=== PATIENT | male | born 1985 | race Caucasian/White ===

== ENCOUNTER 2021-12-21 19:54 | Emergency (ER) | payer OTHER, SELFPAY ==
[2021-12-21 20:40] VITALS: BP 125/73; PULSE 77; RESP 14; TEMP 36.3; O2SAT 99; BMI 68.8
[2021-12-21 22:50] VITALS: BP 123/73; PULSE 67; TEMP 36.2; O2SAT 98
--- NOTE | 2021-12-21 22:59 | ED_ITS ---
HPI - Wound/Laceration General Chief Complaint: Wound/Laceration Stated Complaint: ?Foot infection Time Seen by Provider: 12/21/21 22:52 Source: patient Mode of arrival: ambulatory Limitations: no limitations History of Present Illness HPI narrative: 36-year-old male here with reports of right foot pain for the last few weeks. Patient tells me that he got the foot wet for period of time and after that he noticed the pain. He also feels that the foot is warm and swollen. No fevers or chills. Related Data Previous Rx's Medication Instructions Recorded doxycycline monohydrate 100 mg 100 mg PO BID #20 tab 12/21/21 tablet Allergies Allergy/AdvReac Type Severity Reaction Status Date / Time Penicillins [PENICILLINS] Allergy Unknown UNKNOWN Unverified 04/16/20 19:03 Review of Systems Review of Systems: Yes all other systems are reviewed and are negative Constitutional: Constitutional: Reports no additional constitutional complaints, Denies body ache(s), Denies chills, Denies fever(s), Denies headache(s) and Denies weakness Eyes: Eyes: Reports no additional eye complaints and Denies change in vision ENT: Reports system reviewed and no additional complaints, except as documented, Denies dizziness, Denies headache(s), Denies nasal congestion, Denies nasal discharge and Denies neck pain Cardiovascular: Cardiovascular: Reports no additional cardiovascular complaints, Denies chest pain, Denies leg edema and Denies dyspnea Respiratory: Respiratory: Reports no additional respiratory complaints, Denies cough and Denies dyspnea Gastrointestinal: Gastrointestinal: Reports no additional gastrointestinal complaints, Denies abdominal pain, Denies diarrhea, Denies nausea and Denies vomiting Genitourinary: Genitourinary: Denies urinary incontinence Musculoskeletal: Musculoskeletal: Reports no additional musculoskeletal complaints, Denies back pain, Denies arthralgias, Denies joint swelling, Denies neck pain, Denies numbness and Denies tingling Integumentary/Breasts: Skin/Breast: Reports system reviewed and no additional complaints, except as docu, Reports swelling, Reports erythema and Denies rash Neurologic: Reports system reviewed and no additional complaints, except as documented, Denies Abnormal speech present, Denies dizziness, Denies headache(s), Denies numbness, Denies tingling and Denies weakness PMF Past Medical History Attestation statement: The following information was validated with the patient. Source: old records reviewed and nursing notes reviewed Social History Social History Advance Directives: No Advance Directives Information Provided: No Physical Exam Vital Signs: Vital Signs: Last Vital Signs Temp 97.2 F 12/21/21 22:50 Pulse 67 12/21/21 22:50 Resp 14 12/21/21 20:40 BP 123/73 12/21/21 22:50 Pulse Ox 98 12/21/21 22:50 BMI result Body Mass Index 68.8 Const: General: cooperative, healthy appearing, comfortable and no acute distress Orientation/consciousness: patient oriented x3 Limitations: no limitations HEENT: Head: Yes normal to inspection Ears: hearing grossly normal bilaterally General nose exam: Normal external nose present Face and sinus: Yes normal facial exam Mouth: Normal oral and palatal mucosa present Throat: Yes posterior oropharynx normal Eyes: General: appearance normal, both eyes and all related structures Pupils: Equal, round and reactive pupils present Neck: Neck: Yes normal visual inspection Chest: Chest palpation & inspection: normal inspection of the chest Resp: Effort & Inspection: normal respiratory effort Auscultation: clear to auscultation bilaterally Cardio: Rate: regular rate Rhythm: regular rhythm Peripheral pulses: Peripheral pulses 2+ throughout GI: Inspection: Yes normal to inspection Palpation (GI): Soft to palpation and nontender Auscultation: normal bowel sounds Back/Spine/Pelvis: Thoracic/Lumbar Spine: thoracic and lumbar spine normal to inspection Skin: General skin exam: no rashes or lesions noted Neuro: General: patient oriented x3, no focal motor deficits and normal sensation to monofilament Cranial nerves: Yes Equal, round and reactive pup ils present Cognition (Neuro): normal cognition Speech: No Abnormal speech present Gait exam (Neuro): Normal gait present Motor exam (neuro): 5/5 motor strength present throughout Extrem: Other: To the plantar aspect of the right foot there is an open abrasion with some maceration of the skin noted. Over the dorsal aspect there is slight warmth, redness and swelling. It is not circumferential. There are palpable DP and PT pulses. There is full range of motion. General: Yes normal to inspection Course Course Course Narrative: 36-year-old male here with what appears to be a right foot cellulitis. Likely secondary to his foot being wet for a period of time. The area is not circumferential. He has no fever or tachycardia or systemic signs or symptoms concerning for infection. Will start him on oral antibiotics. Recommend keeping his foot clean and dry. Reviewed worrisome signs and symptoms of when to return to the emergency department. Comfortable discharge home. MDM - Wound/Laceration Medical Records Attestation: I reviewed the patient's medical records. Lab Data Attestation: I reviewed the patient's lab results. Discharge Plan Discharge Clinical Impression: Cellulitis of foot Patient Disposition: Home, Self-Care Instructions: Cellulitis (ED), Cellulitis (DC) Additional Instructions: Keep your feet dry Return for fever 100.4, increasing redness/swelling or pain. Prescriptions: New doxycycline monohydrate 100 mg tablet 100 mg PO BID Qty: 20 0RF Referrals: Physician,Fabiana J [Primary Care Provider] - 1 week Interventions: ED Discharge Assessment Last Done: 12/22/21 00:19 Discharge Date/Time: 12/22/21 00:20
== END 2021-12-22 00:20 | disposition home or self-care (01) ==
LOC: HO.ED 23:07
PROVIDERS: Emergency Provider Internal Medicine
DX: L03.115 Cellulitis of right lower limb (principal); M79.671 Pain in right foot
CPT/HCPCS: 99283

== ENCOUNTER 2022-02-08 14:42 | Emergency (ER) | payer OTHER, SELFPAY ==
--- NOTE | ~2022-02-08 | XR_ITS ---
EXAMINATION: XR TIBIA AND FIBULA, RIGHT CLINICAL INFORMATION: Leg swelling and redness COMPARISON: None TECHNIQUE: AP and lateral views of the right tibia and fibula were obtained. FINDINGS: Plate and screw fixation hardware is present along the distal fibula. Additional screws are present at the medial malleolus. Osseous alignment is anatomic. No acute fracture is seen. Small posterior calcaneal spur is present. Joint spaces at the knee and ankle appear maintained. There is medial soft tissue swelling at the ankle. XR/XR tibia fibula RT 2V IMPRESSION: No acute osseous findings identified. Medial soft tissue swelling at the ankle.
--- NOTE | ~2022-02-08 | US_ITS ---
EXAMINATION: US VENOUS ULTRASOUND WITH DOPPLER LOWER EXTREMITY, BILATERAL CLINICAL INFORMATION: Redness and swelling COMPARISON: None TECHNIQUE: Ultrasound of the deep veins is performed from the hip to the calf with compression sonography and color and pulse Doppler assessment. Spectral analysis with color-flow imaging is performed. FINDINGS: RIGHT: There is normal venous compression and respiratory variation and augmented flow. The visualized common femoral vein, superficial femoral vein, profunda femoral vein, popliteal vein, and the trifurcation region shows no evidence of deep venous thrombosis. There is no significant popliteal fossa cyst. LEFT: There is normal venous compression and respiratory variation and augmented flow. The visualized common femoral vein, superficial femoral vein, profunda femoral vein, popliteal vein, and the trifurcation region shows no evidence of deep venous thrombosis. There is no significant popliteal fossa cyst. If the patient's symptoms persist, followup ultrasound in 5 days 7 days might be of value to exclude proximal propagation from a non-visualized calf vein. US/US venous duplex LE BI IMPRESSION: No DVT demonstrated in the bilateral lower extremities.
--- NOTE | ~2022-02-08 | XR_ITS ---
EXAMINATION: XR CHEST CLINICAL INFORMATION: Chest pain COMPARISON: 01/06/2020 TECHNIQUE: Frontal view of the chest was obtained. FINDINGS: No significant abnormality is noted involving the heart, lungs, mediastinum, bony thorax or soft tissues. XR/XR chest 1V IMPRESSION: Unremarkable examination.
--- NOTE | ~2022-02-08 | XR_ITS ---
EXAMINATION: XR TIBIA AND FIBULA, LEFT CLINICAL INFORMATION: Leg swelling and redness COMPARISON: None TECHNIQUE: AP and lateral views of the left tibia and fibula were obtained. FINDINGS: Osseous alignment is anatomic. No acute fracture is seen. Joint spaces at the knee and ankle appear maintained. Soft tissue swelling is noted at the ankle. XR/XR tibia fibula LT 2V IMPRESSION: No acute osseous findings. Soft tissue swelling at the ankle.
[2022-02-08 16:03] VITALS: BP 102/58; PULSE 86; RESP 18; TEMP 37.3; O2SAT 95; BMI 31.8
--- NOTE | 2022-02-08 16:07 | ECG_ITS ---
Test Reason : SWOLLEN LEGS Blood Pressure : / mmHG Vent. Rate : 076 BPM Atrial Rate : 076 BPM P-R Int : 198 ms QRS Dur : 076 ms QT Int : 402 ms P-R-T Axes : 016 039 038 degrees QTc Int : 452 ms Normal sinus rhythm Normal ECG No previous ECGs available Referred By: Generic ED Physician Electronically Signed By:DEVON BO MD
[2022-02-08 16:54] LABS: MANUAL DIFF FLAG NO
[2022-02-08 16:59] LABS: Basophils Percent Auto 0.4 % (0-2); Eosinophils Percent Auto 0.2 % (0-4); Hematocrit 32.8 % (42.0-52.0); Hemoglobin 10.8 g/dl (14.0-18.0); Imm Gran Abs Auto 0.02 X10*3/uL (0.00-0.03); Imm Gran Pct Auto 0.4 % (0.0-0.4); Lymphocytes Absolute Auto 0.7 X10*3/uL (1.2-4.9); Lymphocytes Percent Auto 12.3 % (20-40); Mean Corpuscular HGB Conc 32.9 g/dl (31.0-36.0); Mean Corpuscular Hemoglobin 28.3 pg (27.0-33.0); Mean Corpuscular Volume 85.9 fL (80.0-98.0); Mean Platelet Volume 10.1 fL (9.4-12.4); Monocytes Absolute Auto 0.5 X10*3/uL (0.1-1.2); Monocytes Percent Auto 8.5 % (2-11); Neutrophils Absolute Auto 4.3 x10*3/uL (2.0-8.3); Neutrophils Percent Auto 78.2 % (45-73); Platelet Count 190 X10*3/uL (160-400); Red Blood Count 3.82 X10*6/uL (4.60-5.80); Red Cell Distribution Width 13.5 % (11.0-16.0); White Blood Count 5.5 X10*3/uL (4.8-10.8)
[2022-02-08 17:07] LABS: D Dimer High Sensitivity 340 NG/ML
[2022-02-08 17:11] LABS: Alanine Aminotransferase 36 U/L (0-40); Albumin Level 4.4 g/dL (3.5-5.0); Alkaline Phosphatase 81 U/L (39-117); Anion Gap 13 (12-20); Aspartate Amino Transferase 38 U/L (5-37); Bilirubin Total 0.4 mg/dL (0.0-1.0); Blood Urea Nitrogen 12 mg/dL (9-16); COVID-19 Test Negative (Negative); Calcium 8.8 mg/dL (8.4-10.2); Carbon Dioxide 26 mmol/L (22-29); Chloride 98 mmol/L (96-108); Creatinine Clr Calc Pharmacy 148.6; Estimated Glomerular Filt Rate > 60; Glucose Random 126 mg/dL (60-115); IDNOW Serial# 08D9AD1C; Potassium 3.7 mmol/L (3.3-5.1); Sodium 133 mmol/L (135-145); Total Protein 7.1 g/dL (6.5-8.0)
[2022-02-08 17:16] LABS: B Type Natriuretic Peptide 20 pg/mL (<100); Troponin-I High Sensitivity < 3.5 ng/L (<3.5-35.0)
--- NOTE | 2022-02-09 02:18 | ED.GENADULT ---
HPI - General Adult General Chief complaint: Extremity Injury, Lower Stated complaint: Swelling Both Legs Time Seen by Provider: 02/09/22 00:08 Source: patient Mode of arrival: ambulatory Limitations: no limitations History of Present Illness HPI narrative: 36 yold male with pmh of IV drug use presents to the ED for bilateral lower extremity pain with red rash and warmth. patient denies any recent trauma to lower extremities, IV injection to lower extremities, or animlal bite. patietn states no chest pain, plueirsy, shortness of breath, fever, or chils. Related Data Previous Rx's Medication Instructions Recorded doxycycline monohydrate 100 mg 100 mg PO BID #20 tabs 12/21/21 tablet cephalexin 500 mg capsule 500 mg PO QID 7 days #28 caps 02/09/22 doxycycline hyclate 100 mg tablet 100 mg PO BID 7 days #14 tabs 02/09/22 prednisone 20 mg tablet 20 mg PO BID 5 days #10 tabs 02/09/22 Allergies Allergy/AdvReac Type Severity Reaction Status Date / Time No Known Allergies Allergy Verified 02/08/22 16:03 Review of Systems Review of Systems: BIlateral lower extremity swelling with redness Yes all other systems are reviewed and are negative [facility] Social History Social History Advance Directives: No Advance Directives Information Provided: No Physical Exam ED Vital Signs: Vital Signs - 24 hr 02/08/22 16:03 Temperature 99.2 F Pulse Rate 86 Respiratory Rate 18 Blood Pressure 102/58 L Pulse Oximetry 95 Oxygen Delivery Method Room Air BMI result Body Mass Index 31.8 Const General: cooperative, healthy appearing, comfortable, no acute distress, well developed, alert, awake and Physically active Orientation/consciousness: patient oriented x3 HENMT Head: Yes normal to inspection, Yes No palpable skull fracture present, Yes normocephalic and No atraumatic Eyes General: appearance normal, both eyes and all related structures Neck Neck: Yes normal visual inspection, Yes full ROM, Yes no lymphadenopathy, Yes no meningeal signs, Yes trachea midline, Yes supple, No anterior neck swelling and No tender Chest Chest palpation & inspection: normal inspection of the chest and normal palpation of entire chest wall Resp Effort & Inspection: normal respiratory effort and able to speak in complete sentences Auscultation: clear to auscultation bilaterally Cardio Jugular venous distension: no JVD Heart sounds: S1 normal heart sound present and S2 normal heart sound present GI Inspection: Yes normal to inspection and No abdominal wall ecchymosis Palpation (GI): Soft to palpation, not firm, nontender, no guarding and not rigid General: No CVA tenderness and Yes no CVA tenderness Back/Spine/Pelvis Back: no CVA tenderness, No CVA tenderness and No back tenderness Neuro General: patient oriented x3, gait normal, no meningeal signs and CN's II-XI intact bilaterally Cranial nerves: Yes CN's II-XII intact bilaterally Extrem Other: Bilateral lower extremities positive for petechial /purpuric like rash and warm red. Bilaterally negative crepitus, deformity, or calf tenderness. Bilaterally motor/ nose/vascular exam intact. No other rash elsewhere on the body. Psych Appearance: grossly normal, well kempt and not disheveled Course Course Course Narrative: Patient recommended extreme in triage. nursing triage order D-dimer I did not order D-dimer. Reevaluation(s) Reevaluation #1: bilateral lower extremity ultrasound was negative for DVT. Patient was sent for ultrasound due to elevated D-dimer. Patient denies any chest pain or shortness of breath. Patient denies any pleurisy. Patient oxygen levels normal. No need for chest CTA. Not suspecting PE. Patient reading a book. Negative elevated white blood cell count. Bilateral lower extremity x-rays normal. Awaiting ESR and CRP. Patient evaluated with Dr. Pollack who states patient can be discharged with antibiotics pending ESR and CRP. Platelets normal. Cellulitis vs Vasculitis differential. Time: 14:32 Reevaluation #2: ESR CRP came back elevated. Discussed with Dr. Farley who states this may be vasculitis so patient will be discharged with steroids on top of antibiotics and follow up with primary care provider. Time: 03:35 Medical Decision Making MDM Narrative Medical decision making narrative: Cellulitis Vasculitis Lab Data Result diagrams: 02/08/22 16:47 02/08/22 16:47 Labs: Lab Results 02/08/22 02/08/22 02/08/22 Range/Units 16:47 16:47 16:47 WBC 5.5 (4.8-10.8) X10*3/uL RBC 3.82 L (4.60-5.80) X10*6/uL Hgb 10.8 L (14.0-18.0) g/dl Hct 32.8 L (42.0-52.0) % MCV 85.9 (80.0-98.0) fL MCH 28.3 (27.0-33.0) pg MCHC 32.9 (31.0-36.0) g/dl RDW 13.5 (11.0-16.0) % Plt Count 190 (160-400) X10*3/uL MPV 10.1 (9.4-12.4) fL Immature Gran % (Auto) 0.4 (0.0-0.4) % Neut % (Auto) 78.2 H (45-73) % Lymph % (Auto) 12.3 L (20-40) % Runnels % (Auto) 8.5 (2-11) % Eos % (Auto) 0.2 (0-4) % Baso % (Auto) 0.4 (0-2) % Lymph # (Auto) 0.7 L (1.2-4.9) X10*3/uL Runnels # (Auto) 0.5 (0.1-1.2) X10*3/uL Eos # (Auto) 0.0 (0.0-0.4) X10*3/uL Baso # (Auto) 0.0 (0.0-0.2) X10*3/uL Abs Immat Gran (auto) 0.02 (0.00-0.03) X10*3/uL Absolute Neuts (auto) 4.3 (2.0-8.3) x10*3/uL Absolute Nucleated RBC 0.000 (0.0-0.012) X10*3/uL Nucleated RBC % (auto) 0.0 (0.0-0.2) /100WBC ESR (0-15) MM/HR PT (10.0-13.1) SEC INR (0.9-1.1) APTT (24.1-38.0) SEC D-Dimer High Sensitivty 340 NG/ML Sodium 133 L (135-145) mmol/L Potassium 3.7 (3.3-5.1) mmol/L Chloride 98 (96-108) mmol/L Carbon Dioxide 26 (22-29) mmol/L Anion Gap 13 (12-20) BUN 12 (9-16) mg/dL Creatinine 0.85 (0.5-1.4) mg/dL Estim Creat Clear Calc 148.6 Estimated GFR > 60 Random Glucose 126 H (60-115) mg/dL Calcium 8.8 (8.4-10.2) mg/dL Total Bilirubin 0.4 (0.0-1.0) mg/dL AST 38 H (5-37) U/L ALT 36 (0-40) U/L Alkaline Phosphatase 81 (39-117) U/L Troponin I High Sens (<3.5-35.0) ng/L C-Reactive Protein (< or = 0.50) mg/dL B-Natriuretic Peptide (<100) pg/mL Total Protein 7.1 (6.5-8.0) g/dL Albumin 4.4 (3.5-5.0) g/dL COVID-19 ([facility]) (Negative) COVID-19 Clin Com 02/08/22 02/08/22 02/08/22 Range/Units 16:47 16:47 16:47 WBC (4.8-10.8) X10*3/uL RBC (4.60-5.80) X10*6/uL Hgb (14.0-18.0) g/dl Hct (42.0-52.0) % MCV (80.0-98.0) fL MCH (27.0-33.0) pg MCHC (31.0-36.0) g/dl RDW (11.0-16.0) % Plt Count (160-400) X10*3/uL MPV (9.4-12.4) fL Immature Gran % (Auto) (0.0-0.4) % Neut % (Auto) (45-73) % Lymph % (Auto) (20-40) % Runnels % (Auto) (2-11) % Eos % (Auto) (0-4) % Baso % (Auto) (0-2) % Lymph # (Auto) (1.2-4.9) X10*3/uL Runnels # (Auto) (0.1-1.2) X10*3/uL Eos # (Auto) (0.0-0.4) X10*3/uL Baso # (Auto) (0.0-0.2) X10*3/uL Abs Immat Gran (auto) (0.00-0.03) X10*3/uL Absolute Neuts (auto) (2.0-8.3) x10*3/uL Absolute Nucleated RBC (0.0-0.012) X10*3/uL Nucleated RBC % (auto) (0.0-0.2) /100WBC ESR (0-15) MM/HR PT (10.0-13.1) SEC INR (0.9-1.1) APTT (24.1-38.0) SEC D-Dimer High Sensitivty NG/ML Sodium (135-145) mmol/L Potassium (3.3-5.1) mmol/L Chloride (96-108) mmol/L Carbon Dioxide (22-29) mmol/L Anion Gap (12-20) BUN (9-16) mg/dL Creatinine (0.5-1.4) mg/dL Estim Creat Clear Calc Estimated GFR Random Glucose (60-115) mg/dL Calcium (8.4-10.2) mg/dL Total Bilirubin (0.0-1.0) mg/dL AST (5-37) U/L ALT (0-40) U/L Alkaline Phosphatase (39-117) U/L Troponin I High Sens < 3.5 (<3.5-35.0) ng/L C-Reactive Protein (< or = 0.50) mg/dL B-Natriuretic Peptide 20 (<100) pg/mL Total Protein (6.5-8.0) g/dL Albumin (3.5-5.0) g/dL COVID-19 ([facility]) Negative (Negative) COVID-19 Clin Com See Note 02/09/22 02/09/22 02/09/22 Range/Units 02:26 02:26 02:26 WBC (4.8-10.8) X10*3/uL RBC (4.60-5.80) X10*6/uL Hgb (14.0-18.0) g/dl Hct (42.0-52.0) % MCV (80.0-98.0) fL MCH (27.0-33.0) pg MCHC (31.0-36.0) g/dl RDW (11.0-16.0) % Plt Count (160-400) X10*3/uL MPV (9.4-12.4) fL Immature Gran % (Auto) (0.0-0.4) % Neut % (Auto) (45-73) % Lymph % (Auto) (20-40) % Runnels % (Auto) (2-11) % Eos % (Auto) (0-4) % Baso % (Auto) (0-2) % Lymph # (Auto) (1.2-4.9) X10*3/uL Runnels # (Auto) (0.1-1.2) X10*3/uL Eos # (Auto) (0.0-0.4) X10*3/uL Baso # (Auto) (0.0-0.2) X10*3/uL Abs Immat Gran (auto) (0.00-0.03) X10*3/uL Absolute Neuts (auto) (2.0-8.3) x10*3/uL Absolute Nucleated RBC (0.0-0.012) X10*3/uL Nucleated RBC % (auto) (0.0-0.2) /100WBC ESR 20 H (0-15) MM/HR PT 11.6 (10.0-13.1) SEC INR 1.0 (0.9-1.1) APTT 31.2 (24.1-38.0) SEC D-Dimer High Sensitivty NG/ML Sodium (135-145) mmol/L Potassium (3.3-5.1) mmol/L Chloride (96-108) mmol/L Carbon Dioxide (22-29) mmol/L Anion Gap (12-20) BUN (9-16) mg/dL Creatinine (0.5-1.4) mg/dL Estim Creat Clear Calc Estimated GFR Random Glucose (60-115) mg/dL Calcium (8.4-10.2) mg/dL Total Bilirubin (0.0-1.0) mg/dL AST (5-37) U/L ALT (0-40) U/L Alkaline Phosphatase (39-117) U/L Troponin I High Sens (<3.5-35.0) ng/L C-Reactive Protein 9.85 H (< or = 0.50) mg/dL B-Natriuretic Peptide (<100) pg/mL Total Protein (6.5-8.0) g/dL Albumin (3.5-5.0) g/dL COVID-19 ([facility]) (Negative) COVID-19 Clin Com ECG Data Interpretation: Normal Sinus rhythm. Priyank r[address] 76, MS interval 198, QRS 76. negative stemi Discharge Plan Discharge Clinical Impression: Cellulitis, Vasculitis Patient Disposition: Home, Self-Care Additional Instructions: you will be discharged with antibiotics and steroids. Please follow with the primary care provider. Return to ED for any worsening swelling, worsening redness, chest pain, shortness of breath, chest pain inspiration, tracked with fever, pus discharge, foul odor, or any other concerning symptoms. Prescriptions: New cephalexin 500 mg capsule 500 mg PO QID 7 Days Qty: 28 0RF doxycycline hyclate 100 mg tablet 100 mg PO BID 7 Days Qty: 14 0RF prednisone 20 mg tablet 20 mg PO BID 5 Days Qty: 10 0RF No Action doxycycline monohydrate 100 mg tablet 100 mg PO BID Qty: 20 0RF Print Language: Yi
[2022-02-09 02:37] LABS: Prothrombin Time 11.6 SEC (10.0-13.1)
[2022-02-09 02:39] LABS: Partial Thromboplastin Time 31.2 SEC (24.1-38.0)
[2022-02-09 02:44] LABS: C Reactive Protein 9.85 mg/dL (< or = 0.50)
[2022-02-09 03:04] LABS: Erythrocyte Sedimentation Rate 20 MM/HR (0-15)
--- NOTE | 2022-02-09 03:48 | PC.NURSE ---
pt a&o, no sob or chest pain. pt has positive cms and pedal pulses. Reviewed discharge instruction with pt. Pt verbalized understanding. pt requesting to speak to provider regarding being discharged. Provider in to review plan of care. Pt discharge.
--- NOTE | 2022-02-09 03:49 | PC.NURSE ---
pt refusing vitals and signature of discharge paper. Took over care from TEN Gambino at 3:30am
== END 2022-02-09 03:59 | disposition home or self-care (01) ==
PROVIDERS: Internal Medicine; Physician Assistant; Emergency Provider Emergency Medicine
DX: L03.116 Cellulitis of left lower limb (principal); L03.115 Cellulitis of right lower limb; L95.9 Vasculitis limited to the skin, unspecified; M79.605 Pain in left leg; M79.662 Pain in left lower leg; M79.661 Pain in right lower leg; Z20.822 Contact with and (suspected) exposure to COVID-19; Z79.899 Other long term (current) drug therapy
CPT/HCPCS: 36415; 71045; 73590; 80053; 83880; 84484; 85025; 85379; 85610; 85652; 85730; 86140; 87635; 93005; 93970; 99283; 99284

== ENCOUNTER 2022-02-09 14:16 | Emergency (ER) | payer OTHER, SELFPAY ==
[2022-02-09 14:59] VITALS: BP 125/72; PULSE 88; RESP 18; TEMP 37.3; O2SAT 95; BMI 31.8
--- NOTE | 2022-02-09 15:53 | MHC.RECOVRN ---
Briefly met with pt in ED waiting room to introduce self. T/w had received call from [facility] concerned about patient's wellbeing. Pt sitting in waiting room, awake, alert, reading a book, easily engages in conversation. 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 Pt reports occasional substance use since mother in August. Pt denies injecting in lower extremities. Pt was seen overnight and discharged with prescriptions sent to pharmacy in [place]. Due to lack of transportation pt has been unable to obtain medications. Pt reports since leaving ED, nausea and vomiting have become persistent. Pt states My legs are getting worse and I'm homeless. I can't exactly rest and elevate them like they told me to. Pt encouraged to remain in ED for evaluation. Pt agreeable due to health concerns. Pt provided with t/w contact information and informed [facility] Cutter will be in this evening as well.
[2022-02-09 16:24] VITALS: BP 131/55; PULSE 83; RESP 16; TEMP 37.1; O2SAT 98
--- NOTE | 2022-02-09 16:37 | ED.SKABFB ---
HPI - Skin/Abscess/Foreign Bdy General Chief complaint: Skin/Abscess/Foreign Body Stated complaint: l leg infection Time Seen by Provider: 02/09/22 16:31 Source: patient Mode of arrival: ambulatory Limitations: no limitations History of Present Illness HPI narrative: 36-year-old male with a history of IV drug abuse presents with bilateral lower extremity swelling, redness, pain and rash for the last several weeks. Patient reports he was seen here yesterday. He was diagnosed with cellulitis and vasculitis. He had a negative ultrasound for DVT. He was discharged with prescriptions for cephalexin, doxycycline and prednisone. He tells me he is currently homeless. 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 He has not use IV drugs and more than 1 week. He reports some tactile temps, headache and vomiting since last evening. Related Data Previous Rx's Medication Instructions Recorded doxycycline monohydrate 100 mg 100 mg PO BID #20 tabs 12/21/21 tablet cephalexin 500 mg capsule 500 mg PO QID 7 days #28 caps 02/09/22 doxycycline hyclate 100 mg tablet 100 mg PO BID 7 days #14 tabs 02/09/22 prednisone 20 mg tablet 20 mg PO BID 5 days #10 tabs 02/09/22 Allergies Allergy/AdvReac Type Severity Reaction Status Date / Time No Known Allergies Allergy Verified 02/08/22 16:03 Review of Systems Review of Systems: Yes all other systems are reviewed and are negative Constitutional: Constitutional: Reports no additional constitutional complaints, Denies body ache(s), Denies chills, Reports fever(s) (tactile), Reports headache(s) and Denies weakness Eyes: Eyes: Reports no additional eye complaints and Denies change in vision ENT: Reports system reviewed and no additional complaints, except as documented, Denies dizziness, Reports headache(s), Denies nasal congestion, Denies nasal discharge and Denies neck pain Cardiovascular: Cardiovascular: Reports no additional cardiovascular complaints, Denies chest pain, Denies leg edema and Denies dyspnea Respiratory: Respiratory: Reports no additional respiratory complaints, Denies cough and Denies dyspnea Gastrointestinal: Gastrointestinal: Reports no additional gastrointestinal complaints, Denies abdominal pain, Denies diarrhea, Reports nausea and Reports vomiting Genitourinary: Genitourinary: Denies urinary incontinence Musculoskeletal: Musculoskeletal: Reports no additional musculoskeletal complaints, Denies back pain, Denies arthralgias, Denies joint swelling, Denies neck pain, Denies numbness and Denies tingling Integumentary/Breasts: Skin/Breast: Reports system reviewed and no additional complaints, except as docu, Reports swelling, Reports erythema and Reports rash Neurologic: Reports system reviewed and no additional complaints, except as documented, Denies Abnormal speech present, Denies dizziness, Reports headache(s), Denies numbness, Denies tingling and Denies weakness PMFSH Past Medical History Attestation statement: The following information was validated with the patient. Source: old records reviewed and nursing notes reviewed Social History Social History Advance Directives: No Advance Directives Information Provided: No Physical Exam Vital Signs: Vital Signs: Last Vital Signs Temp 97.9 F 02/09/22 23:52 Pulse 73 02/09/22 23:52 Resp 16 02/09/22 23:52 BP 117/69 02/09/22 23:52 Pulse Ox 98 02/09/22 23:52 O2 Del Method 02/09/22 23:52 BMI result Body Mass Index 31.8 Const: General: cooperative, healthy appearing, comfortable and no acute distress Orientation/consciousness: patient oriented x3 Limitations: no limitations HEENT: Head: Yes normal to inspection Ears: hearing grossly normal bilaterally General nose exam: Normal external nose present Face and sinus: Yes normal facial exam Mouth: Normal oral and palatal mucosa present Throat: Yes posterior oropharynx normal Eyes: General: appearance normal, both eyes and all related structures Pupils: Equal, round and reactive pupils present Neck: Neck: Yes normal visual inspection Chest: Chest palpation & inspection: normal inspection of the chest Resp: Effort & Inspection: normal respiratory effort Auscultation: clear to auscultation bilaterally Cardio: Rate: regular rate Rhythm: regular rhythm Peripheral pulses: Peripheral pulses 2+ throughout GI: Inspection: Yes normal to inspection Palpation (GI): Soft to palpation and nontender Auscultation: normal bowel sounds Back/Spine/Pelvis: Thoracic/Lumbar Spine: thoracic and lumbar spine normal to inspection Skin: General skin exam: no rashes or lesions noted Neuro: General: patient oriented x3, no focal motor deficits and normal sensation to monofilament Cranial nerves: Yes Equal, round and reactive pupils present Cognition (Neuro): normal cognition Speech: No Abnormal speech present Gait exam (Neuro): Normal gait present Motor exam (neuro): 5/5 motor strength present throughout Extrem: Other: Palpable DP and PT pulses. Full range of motion of affected joints. Sensation is normal. There is warmth noted General: Yes normal to inspection Course Course Course Narrative: Overall patient nontoxic appearing. He has no fever or leukocytosis. His cellulitis does not appear worsened when compared to the images from yesterday's ER visit. Again he has not started taking his oral antibiotics so I believe we can start with treating him with oral doxycycline and cephalexin and see how he feels. There is likely also component to some vasculitis. Therefore I will start him on a 5 day course of prednisone. Patient was seen by the disaster recovery manager. He admitted to using heroin 2 days ago. He is on methadone 110 mg daily and received his dose today. He would like detox. There will be a bed available in the morning. Therefore patient will be held in the emergency room until tomorrow morning Reevaluation(s) Reevaluation #1: Placed in physician observation pending disposition. Sign out to night team pending above. Time: 01:00 MDM - Skin/Abscess/Foreign Bdy MDM Narrative Medical decision making narrative: 36-year-old male here with persistent lower extremity swelling, redness, rash. Seen here yesterday and diagnosed with cellulitis and vasculitis. Patient had prescription sent for prednisone, cephalexin and doxycycline. Patient unable to start the antibiotics as he is homeless and he was unable to get to the pharmacy. Reports today for persistent symptoms in addition to headache, tactile temps and vomiting. On exam the rash does appear to have a vasculitis appearance but with rash, warmth and redness. Overall nontoxic appearing. Will repeat labs. Give IV antibiotics. Have patient talk to disaster recovery manager Medical Records Attestation: I reviewed the patient's medical records. Lab Data Attestation: I reviewed the patient's lab results. Result diagrams: 02/09/22 17:31 02/09/22 17:31 Labs: Lab Results 02/09/22 02/09/22 02/09/22 Range/Units 17:31 17:31 17:31 WBC 5.5 (4.8-10.8) X10*3/uL RBC 3.67 L (4.60-5.80) X10*6/uL Hgb 10.5 L (14.0-18.0) g/dl Hct 31.5 L (42.0-52.0) % MCV 85.8 (80.0-98.0) fL MCH 28.6 (27.0-33.0) pg MCHC 33.3 (31.0-36.0) g/dl RDW 13.5 (11.0-16.0) % Plt Count 196 (160-400) X10*3/uL MPV 10.0 (9.4-12.4) fL Immature Gran % (Auto) 0.2 (0.0-0.4) % Neut % (Auto) 64.4 (45-73) % Lymph % (Auto) 19.0 L (20-40) % [place] % (Auto) 14.8 H (2-11) % Eos % (Auto) 1.1 (0-4) % Baso % (Auto) 0.5 (0-2) % Lymph # (Auto) 1.1 L (1.2-4.9) X10*3/uL [place] # (Auto) 0.8 (0.1-1.2) X10*3/uL Eos # (Auto) 0.1 (0.0-0.4) X10*3/uL Baso # (Auto) 0.0 (0.0-0.2) X10*3/uL Abs Immat Gran (auto) 0.01 (0.00-0.03) X10*3/uL Absolute Neuts (auto) 3.6 (2.0-8.3) x10*3/uL Absolute Nucleated RBC 0.000 (0.0-0.012) X10*3/uL Nucleated RBC % (auto) 0.0 (0.0-0.2) /100WBC ESR 30 H (0-15) MM/HR Sodium 138 (135-145) mmol/L Potassium 3.4 (3.3-5.1) mmol/L Chloride 98 (96-108) mmol/L Carbon Dioxide 31 H (22-29) mmol/L Anion Gap 12 (12-20) BUN 11 (9-16) mg/dL Creatinine 0.83 (0.5-1.4) mg/dL Estim Creat Clear Calc 152.2 Estimated GFR > 60 Random Glucose 122 H (60-115) mg/dL Lactic Acid (0.5-2.0) mmol/L Calcium 8.6 (8.4-10.2) mg/dL Total Bilirubin 0.4 (0.0-1.0) mg/dL Direct Bilirubin 0.2 (0.0-0.5) mg/dL AST 24 (5-37) U/L ALT 30 (0-40) U/L Alkaline Phosphatase 77 (39-117) U/L C-Reactive Protein 9.06 H (< or = 0.50) mg/dL Total Protein 6.8 (6.5-8.0) g/dL Albumin 4.2 (3.5-5.0) g/dL Urine Opiates Screen (Not Detect) Urine Fentanyl Screen (Not Detect) Ur Barbiturates Screen (Not Detect) Ur Phencyclidine Scrn (Not Detect) Ur Amphetamines Screen (Not Detect) U Benzodiazepines Scrn (Not Detect) Urine Cocaine Screen (Not Detect) U Marijuana (THC) Screen (Not Detect) 02/09/22 02/09/22 Range/Units 17:31 18:17 WBC (4.8-10.8) X10*3/uL RBC (4.60-5.80) X10*6/uL Hgb (14.0-18.0) g/dl Hct (42.0-52.0) % MCV (80.0-98.0) fL MCH (27.0-33.0) pg MCHC (31.0-36.0) g/dl RDW (11.0-16.0) % Plt Count (160-400) X10*3/uL MPV (9.4-12.4) fL Immature Gran % (Auto) (0.0-0.4) % Neut % (Auto) (45-73) % Lymph % (Auto) (20-40) % [place] % (Auto) (2-11) % Eos % (Auto) (0-4) % Baso % (Auto) (0-2) % Lymph # (Auto) (1.2-4.9) X10*3/uL [place] # (Auto) (0.1-1.2) X10*3/uL Eos # (Auto) (0.0-0.4) X10*3/uL Baso # (Auto) (0.0-0.2) X10*3/uL Abs Immat Gran (auto) (0.00-0.03) X10*3/uL Absolute Neuts (auto) (2.0-8.3) x10*3/uL Absolute Nucleated RBC (0.0-0.012) X10*3/uL Nucleated RBC % (auto) (0.0-0.2) /100WBC ESR (0-15) MM/HR Sodium (135-145) mmol/L Potassium (3.3-5.1) mmol/L Chloride (96-108) mmol/L Carbon Dioxide (22-29) mmol/L Anion Gap (12-20) BUN (9-16) mg/dL Creatinine (0.5-1.4) mg/dL Estim Creat Clear Calc Estimated GFR Random Glucose (60-115) mg/dL Lactic Acid 1.1 (0.5-2.0) mmol/L Calcium (8.4-10.2) mg/dL Total Bilirubin (0.0-1.0) mg/dL Direct Bilirubin (0.0-0.5) mg/dL AST (5-37) U/L ALT (0-40) U/L Alkaline Phosphatase (39-117) U/L C-Reactive Protein (< or = 0.50) mg/dL Total Protein (6.5-8.0) g/dL Albumin (3.5-5.0) g/dL Urine Opiates Screen POSITIVE H (Not Detect) Urine Fentanyl Screen POSITIVE H (Not Detect) Ur Barbiturates Screen Not Detected (Not Detect) Ur Phencyclidine Scrn Not Detected (Not Detect) Ur Amphetamines Screen Not Detected (Not Detect) U Benzodiazepines Scrn Not Detected (Not Detect) Urine Cocaine Screen POSITIVE H (Not Detect) U Marijuana (THC) Screen Not Detected (Not Detect) Procedures EJ/Peripheral Line Neck L: Time Out Performed: No Skin Cleansed in Sterile Fashion: Yes Size (gauge): 20 IV Secured and Dressing Applied: Yes Patient Tolerated Procedure: well Discharge Plan Discharge Clinical Impression: Vasculitis, Cellulitis, Substance abuse Patient Disposition: Still a Patient Prescriptions: No Action cephalexin 500 mg capsule 500 mg PO QID 7 Days Qty: 28 0RF doxycycline hyclate 100 mg tablet 100 mg PO BID 7 Days Qty: 14 0RF prednisone 20 mg tablet 20 mg PO BID 5 Days Qty: 10 0RF doxycycline monohydrate 100 mg tablet 100 mg PO BID Qty: 20 0RF
--- NOTE | 2022-02-09 17:11 | PC.NURSE ---
Pt was a difficult draw and phlebotomy was called.
[2022-02-09 17:39] LABS: MANUAL DIFF FLAG NO
[2022-02-09 17:42] LABS: Basophils Percent Auto 0.5 % (0-2); Eosinophils Absolute Auto 0.1 X10*3/uL (0.0-0.4); Eosinophils Percent Auto 1.1 % (0-4); Hematocrit 31.5 % (42.0-52.0); Hemoglobin 10.5 g/dl (14.0-18.0); Imm Gran Abs Auto 0.01 X10*3/uL (0.00-0.03); Imm Gran Pct Auto 0.2 % (0.0-0.4); Lymphocytes Absolute Auto 1.1 X10*3/uL (1.2-4.9); Mean Corpuscular HGB Conc 33.3 g/dl (31.0-36.0); Mean Corpuscular Hemoglobin 28.6 pg (27.0-33.0); Mean Corpuscular Volume 85.8 fL (80.0-98.0); Monocytes Absolute Auto 0.8 X10*3/uL (0.1-1.2); Monocytes Percent Auto 14.8 % (2-11); Neutrophils Absolute Auto 3.6 x10*3/uL (2.0-8.3); Neutrophils Percent Auto 64.4 % (45-73); Platelet Count 196 X10*3/uL (160-400); Red Blood Count 3.67 X10*6/uL (4.60-5.80); Red Cell Distribution Width 13.5 % (11.0-16.0); White Blood Count 5.5 X10*3/uL (4.8-10.8)
[2022-02-09 17:50] LABS: Lactic Acid 1.1 mmol/L (0.5-2.0)
[2022-02-09 17:54] LABS: Alanine Aminotransferase 30 U/L (0-40); Albumin Level 4.2 g/dL (3.5-5.0); Alkaline Phosphatase 77 U/L (39-117); Anion Gap 12 (12-20); Aspartate Amino Transferase 24 U/L (5-37); Bilirubin Direct 0.2 mg/dL (0.0-0.5); Bilirubin Total 0.4 mg/dL (0.0-1.0); Blood Urea Nitrogen 11 mg/dL (9-16); C Reactive Protein 9.06 mg/dL (< or = 0.50); Calcium 8.6 mg/dL (8.4-10.2); Carbon Dioxide 31 mmol/L (22-29); Chloride 98 mmol/L (96-108); Creatinine Clr Calc Pharmacy 152.2; Estimated Glomerular Filt Rate > 60; Glucose Random 122 mg/dL (60-115); Potassium 3.4 mmol/L (3.3-5.1); Sodium 138 mmol/L (135-145); Total Protein 6.8 g/dL (6.5-8.0)
[2022-02-09] MEDS: ondansetron HCL 4 MG/2 ML VIAL IVPUSH (18:03)
--- NOTE | 2022-02-09 18:10 | MHC.RECOVSUP ---
? Reason for consult Recovery Support o Current location: EMS03 o Identified substance use concern: Heroin - Seeking ATS (detox) - Support ? Intervention: o ATS bed search started/completed o Community resources provided o Harm reduction discussion ? Plan: o Bed search in progress to o Follow up tomorrow <del>o</del> <del>Patient</del> <del>awaiting</del> <del>crisis</del> <del>evaluation</del> o Patient to follow up with [facility] after discharge ? Additional information: Patient wants to go to treatment Detox and further treatment.. I called and there is no bed at the moment.. Paloma said to call in the morning... Baljinder also said to call in the morning but patient doesn't want to go there.. Lor tejeda said tomorrow afternoon.. Patient will be held here till tomorrow
[2022-02-09] MEDS: cefTRIAXone sodium 1 GM in 0.9 % Sodium Chloride 50 ML IV (18:14)
[2022-02-09 18:15] LABS: Erythrocyte Sedimentation Rate 30 MM/HR (0-15)
[2022-02-09] MEDS: predniSONE 20 MG TABLET 60 MG PO (18:23)
[2022-02-09] MEDS: 0.9 % Sodium Chloride 1,000 ML 999 ML IV (18:28)
[2022-02-09 18:30] VITALS: BP 121/74; PULSE 87; RESP 18; TEMP 37.2; O2SAT 97
[2022-02-09 18:40] LABS: Amphetamine Screen Urine Not Detected (Not Detect); Barbiturates, Urine Not Detected (Not Detect); Benzodiazepines Screen Urine Not Detected (Not Detect); Cannabinoid Screen Urine Not Detected (Not Detect); Cocaine Screen Urine POSITIVE (Not Detect); Fentanyl, urine POSITIVE (Not Detect); Opiate Screen Urine POSITIVE (Not Detect); Phencyclidine Screen Urine Not Detected (Not Detect)
[2022-02-09 19:51] VITALS: BP 104/55; PULSE 89; RESP 16; TEMP 37.1; O2SAT 98
[2022-02-09 21:49] VITALS: BP 121/62; PULSE 74; RESP 16; TEMP 36.8; O2SAT 98
[2022-02-09 23:52] VITALS: BP 117/69; PULSE 73; RESP 16; TEMP 36.6; O2SAT 98
[2022-02-10 02:00] VITALS: BP 106/66; PULSE 69; RESP 16; TEMP 36.7; O2SAT 98
--- NOTE | 2022-02-10 02:46 | PC.NURSE ---
Patient in room, reading book. Has gotten up to use bathroom. Ambulates with steady gait. No apparent distress.
[2022-02-10] MEDS: Ibuprofen 600 MG TABLET PO (02:55)
--- NOTE | 2022-02-10 05:00 | PC.NURSE ---
Took over care from TEN Correa at 3:00am. Pt is sleeping, no sign of distress at this time.
[2022-02-10 06:13] VITALS: BP 96/60; PULSE 77; RESP 16; TEMP 36.4
[2022-02-10] MEDS: predniSONE 20 MG TABLET 60 MG PO (07:38)
[2022-02-10] MEDS: cephALEXin 500 MG CAPSULE PO (07:39)
--- NOTE | 2022-02-10 09:49 | MHC.RECOVRN ---
Pt currently on phone with Lor Abad doing intake for ATS.
--- NOTE | 2022-02-10 10:31 | PC.NURSE ---
METHADONE VERIFICATION FORM SENT TO PHARMACY. DOSE VERIFIED BY [facility].
--- NOTE | 2022-02-10 11:30 | HE.PHANOTE ---
Methadone Verification- received form 02/10/22 from October; 110mg daily at [place], [place].
[2022-02-10] MEDS: methADONE HCl 20 MG/2 ML ORAL.CONC 110 MG PO (11:38)
--- NOTE | 2022-02-10 12:44 | PC.NURSE ---
IV REMOVED FROM LEFT SIDE NECK. PT MEDICATED WITH METHADONE DOSE. PT WILL BE BROUGHT TO [facility] VIA [facility] FOR [place] [facility].
[2022-02-10 13:15] LABS: COVID-19 Test Negative (Negative)
== END 2022-02-10 13:02 | disposition home or self-care (01) ==
PROVIDERS: Nurse Practitioner Family; Physician Assistant; Emergency Provider Emergency Medicine
DX: L95.9 Vasculitis limited to the skin, unspecified (principal); L03.116 Cellulitis of left lower limb; L03.115 Cellulitis of right lower limb; F19.10 Other psychoactive substance abuse, uncomplicated; M79.605 Pain in left leg; M79.604 Pain in right leg; R51.9 Headache, unspecified; Z20.822 Contact with and (suspected) exposure to COVID-19; Z79.899 Other long term (current) drug therapy
CPT/HCPCS: 36415; 80048; 80076; 80307; 83605; 85025; 85652; 86140; 87040; 87635; 96361; 96365; 96375; 99285; J0696; J2405

== ENCOUNTER 2022-02-12 02:13 | Emergency (ER) | payer OTHER, SELFPAY ==
[2022-02-12] VITALS (8 sets, daily range): BP systolic 79–124; BP diastolic 54–80; PULSE 83–115; RESP 14–18; O2SAT 89–100; BMI 31.8
--- NOTE | ~2022-02-12 | XR_ITS ---
EXAMINATION: XR CHEST CLINICAL INFORMATION: Shortness of breath COMPARISON: 02/08/2022 TECHNIQUE: Frontal view of the chest was obtained. FINDINGS: The lungs are clear with no focal consolidation. No evidence of pneumothorax, pulmonary edema, or pleural effusions. The cardiomediastinal silhouette is unremarkable. No acute osseous findings. XR/XR chest 1V IMPRESSION: No acute cardiopulmonary findings.
[2022-02-12 03:07] LABS: Basophils Percent Auto 0.3 % (0-2); Eosinophils Percent Auto 0.6 % (0-4); Imm Gran Abs Auto 0.04 X10*3/uL (0.00-0.03); Imm Gran Pct Auto 1.2 % (0.0-0.4); Lymphocytes Absolute Auto 0.3 X10*3/uL (1.2-4.9); Lymphocytes Percent Auto 9.9 % (20-40); MANUAL DIFF FLAG NO; Mean Corpuscular HGB Conc 32.4 g/dl (31.0-36.0); Mean Corpuscular Hemoglobin 27.8 pg (27.0-33.0); Mean Corpuscular Volume 86.1 fL (80.0-98.0); Mean Platelet Volume 9.5 fL (9.4-12.4); Monocytes Absolute Auto 0.1 X10*3/uL (0.1-1.2); Monocytes Percent Auto 2.7 % (2-11); NRBC Pct Auto 0.9 /100WBC (0.0-0.2); Neutrophils Absolute Auto 2.9 x10*3/uL (2.0-8.3); Neutrophils Percent Auto 85.3 % (45-73); Platelet Count 169 X10*3/uL (160-400); Red Blood Count 3.95 X10*6/uL (4.60-5.80); Red Cell Distribution Width 13.6 % (11.0-16.0); White Blood Count 3.4 X10*3/uL (4.8-10.8)
--- NOTE | 2022-02-12 03:14 | ED.GENADULT ---
HPI - General Adult General Chief complaint: ETOH/Substance Use Stated complaint: N/V/D WITH DRUG USE Time Seen by Provider: 02/12/22 02:50 Source: patient Mode of arrival: EMS History of Present Illness HPI narrative: 36-year-old male brought in by EMS and reports that he has drank alcohol as well as using 2 bags of heroin and does not want to call his family because he is embarrassed and states that he wants detox. He denies any fever chills, shortness of breath or chest pain and EMS does not report any Narcan prior to arrival. Related Data Previous Rx's Medication Instructions Recorded doxycycline monohydrate 100 mg 100 mg PO BID #20 tabs 12/21/21 tablet cephalexin 500 mg capsule 500 mg PO QID 7 days #28 caps 02/09/22 doxycycline hyclate 100 mg tablet 100 mg PO BID 7 days #14 tabs 02/09/22 prednisone 20 mg tablet 20 mg PO BID 5 days #10 tabs 02/09/22 cephalexin 500 mg capsule 500 mg PO TID 7 days #21 caps 02/10/22 doxycycline hyclate 100 mg capsule 100 mg PO BID 7 days #14 caps 02/10/22 prednisone 20 mg tablet 20 mg PO DAILY 5 days #5 tabs 02/10/22 Allergies Allergy/AdvReac Type Severity Reaction Status Date / Time No Known Allergies Allergy Verified 02/12/22 02:35 Review of Systems Review of Systems: Pertinent positives and negatives as stated in HPI 10 point review of systems is otherwise negative. PMFSH Past Medical History Source: nursing notes reviewed Social History Social History Advance Directives: No Advance Directives Information Provided: Yes Physical Exam ED Vital Signs: Vital Signs - 24 hr 02/12/22 02:33 Pulse Rate 93 Respiratory Rate 14 Blood Pressure 108/64 Pulse Oximetry 89 L Oxygen Delivery Method Room Air BMI result Body Mass Index 31.8 VITAL SIGNS: Reviewed. GENERAL: Well developed, well nourished, in no acute distress. HEAD: Normocephalic/atraumatic EYES: PERRLA, EOMI EARS: Ext canals without abnormality OROPHARYNX: no oral lesions noted, posterior pharynx clear LUNGS: Normal breath sounds, good respiratory effort without tachypnea or increased work of breathing. SpO2<89> this improved to 94% after being placed on 2 L. CARDIOVASCULAR: Regular rate and rhythm without noted murmurs ABDOMEN: Soft, non-tender, non-distended with bowel sounds. SKIN: Inspection of the skin reveals no rashes NEUROLOGIC: Asleep but easily aroused and oriented x 4. Strength and sensation to light touch were grossly intact x 4. Course Course Course Narrative: 36-year-old male with history and clinical presentation consistent with polysubstance use, alcohol intoxication and is requesting detox. He denies any attempts to commit suicide. Will obtain basic lab work. Reevaluation(s) Reevaluation #1: Patient placed in physician observation because the patient needed more time for completion of lab work and evaluation for detox. At the time observation was started the patient's vital signs were stable, patient is alert and oriented, neuro: Nonfocal, CV RRR, lungs clear Time: 03:19 Medical Decision Making Lab Data Result diagrams: 02/12/22 03:01 02/12/22 03:01 Labs: Lab Results 02/12/22 Range/Units 03:01 WBC 3.4 L (4.8-10.8) X10*3/uL RBC 3.95 L (4.60-5.80) X10*6/uL Hgb 11.0 L (14.0-18.0) g/dl Hct 34.0 L (42.0-52.0) % MCV 86.1 (80.0-98.0) fL MCH 27.8 (27.0-33.0) pg MCHC 32.4 (31.0-36.0) g/dl RDW 13.6 (11.0-16.0) % Plt Count 169 (160-400) X10*3/uL MPV 9.5 (9.4-12.4) fL Immature Gran % (Auto) 1.2 H (0.0-0.4) % Neut % (Auto) 85.3 H (45-73) % Lymph % (Auto) 9.9 L (20-40) % [place] % (Auto) 2.7 (2-11) % Eos % (Auto) 0.6 (0-4) % Baso % (Auto) 0.3 (0-2) % Lymph # (Auto) 0.3 L (1.2-4.9) X10*3/uL [place] # (Auto) 0.1 (0.1-1.2) X10*3/uL Eos # (Auto) 0.0 (0.0-0.4) X10*3/uL Baso # (Auto) 0.0 (0.0-0.2) X10*3/uL Abs Immat Gran (auto) 0.04 H (0.00-0.03) X10*3/uL Absolute Neuts (auto) 2.9 (2.0-8.3) x10*3/uL Absolute Nucleated RBC 0.030 H (0.0-0.012) X10*3/uL Nucleated RBC % (auto) 0.9 H (0.0-0.2) /100WBC Discharge Plan Discharge Clinical Impression: Alcoholic intoxication, Substance use disorder Patient Disposition: Still a Patient Prescriptions: No Action cephalexin 500 mg capsule 500 mg PO QID 7 Days Qty: 28 0RF doxycycline hyclate 100 mg tablet 100 mg PO BID 7 Days Qty: 14 0RF prednisone 20 mg tablet 20 mg PO BID 5 Days Qty: 10 0RF doxycycline hyclate 100 mg capsule 100 mg PO BID 7 Days Qty: 14 0RF prednisone 20 mg tablet 20 mg PO DAILY 5 Days Qty: 5 0RF cephalexin 500 mg capsule 500 mg PO TID 7 Days Qty: 21 0RF doxycycline monohydrate 100 mg tablet 100 mg PO BID Qty: 20 0RF
[2022-02-12 03:35] LABS: Alanine Aminotransferase 21 U/L (0-40); Albumin Level 3.7 g/dL (3.5-5.0); Alkaline Phosphatase 98 U/L (39-117); Anion Gap 14 (12-20); Aspartate Amino Transferase 29 U/L (5-37); Bilirubin Total 0.7 mg/dL (0.0-1.0); Blood Urea Nitrogen 21 mg/dL (9-16); Calcium 8.1 mg/dL (8.4-10.2); Carbon Dioxide 25 mmol/L (22-29); Chloride 104 mmol/L (96-108); Creatinine Clr Calc Pharmacy 111.8; Estimated Glomerular Filt Rate > 60; Ethanol < 10 mg/dL; Glucose Random 91 mg/dL (60-115); Potassium 2.9 mmol/L (3.3-5.1); Sodium 140 mmol/L (135-145); Total Protein 6.1 g/dL (6.5-8.0)
[2022-02-12 04:04] LABS: COVID-19 Test Negative (Negative)
--- NOTE | 2022-02-12 06:43 | PC.NURSE ---
Pierre presents to the ED s/p heroin use with c/i nausea and vomiting. On arrival he was drowsy, wakeful to verbal stimuli at which time he was oriented x 3. Since that time he has been asleep with O2 sats and ETCO2 monitoring continuously. These values have remained WNL throughout. We will continue to monitor Pierre.
[2022-02-12] MEDS: Potassium Chloride Packet 20 MEQ PACKET 40 MEQ PO (07:53)
[2022-02-12] MEDS: methADONE HCl 20 MG/2 ML ORAL.CONC 110 MG PO (09:50)
--- NOTE | 2022-02-12 10:15 | PC.NURSE ---
methadone dose verified with ORA Trinidad at [facility]. Per Vivi pt last dosed 02/11/22 at 1001, his dose was 110 mg. Methadone given as documented.
[2022-02-12] MEDS: Omeprazole 20 MG CAPSULE.DR PO (10:42)
--- NOTE | 2022-02-13 09:04 | MHC.RECOVSUP ---
Recovery Support note: Patient was seen on 02/12/22 and expressed interest in going to ATS. Patient referred to [facility] and completed phone intake. Patient accepted for admission and transported via [employer]. Last dose letter provided.
== END 2022-02-12 10:54 | disposition other institution (70) ==
PROVIDERS: Emergency Provider Student in an Organized Health Care Education/Training Program
DX: F10.920 Alcohol use, unspecified with intoxication, uncomplicated (principal); Y90.0 Blood alcohol level of less than 20 mg/100 ml; F19.90 Other psychoactive substance use, unspecified, uncomplicated; Z20.822 Contact with and (suspected) exposure to COVID-19; R11.2 Nausea with vomiting, unspecified; Z79.899 Other long term (current) drug therapy
CPT/HCPCS: 36415; 71045; 80053; 82077; 85025; 87635; 99285